=== PATIENT | female | born 1995 | race Two or more races ===

== ENCOUNTER 2017-11-12 14:54 | Emergency (ER) | payer MEDICAID, OTHER ==
--- NOTE | 2017-11-12 16:14 | ER Document Report ---
ED Medical Screen (RME) - General Chief Complaint: Vaginal Bleeding Stated Complaint: VAGINAL BLEEDING Time Seen by Provider: 11/12/17 16:06 Mode of Arrival: Ambulatory Information source: Patient Notes: Pt is a 22 year old female who presents to the ER today for 12 days of vaginal bleeding with some clots. She admits to "normal period" cramping but other than that no abdominal pain. She denies any lightheadedness or weakness. She is on the control patch. She denies but states "it's possible." TRAVEL OUTSIDE OF THE [place] IN LAST 30 DAYS: No - Related Data Allergies/Adverse Reactions: No Known Allergies Allergy (Verified 11/12/17 16:07) Past Medical History - General Information source: Patient Review of Systems - Review of Systems Constitutional: No symptoms reported EENT: No symptoms reported Cardiovascular: No symptoms reported Respiratory: No symptoms reported Gastrointestinal: No symptoms reported Genitourinary: No symptoms reported Female Genitourinary: See HPI Musculoskeletal: No symptoms reported Skin: No symptoms reported Hematologic/Lymphatic: No symptoms reported Neurological/Psychological: No symptoms reported Physical Exam - Vital signs Vitals: Temp Pulse Resp BP Pulse Ox 98.3 F 71 20 92/72 L 100 11/12/17 15:35 11/12/17 15:35 11/12/17 15:35 11/12/17 15:35 11/12/17 15:35 - Notes Notes: PHYSICAL EXAMINATION: GENERAL: well appearing, but in no acute distress. HEAD: Atraumatic, normocephalic. EYES: Pupils equal round and reactive to light, extraocular movements intact, sclera anicteric, conjunctiva are normal. NECK: Normal range of motion, supple without lymphadenopathy LUNGS: CTAB and equal. No wheezes rales or rhonchi. HEART: regular rate and rhythm without murmurs ABDOMEN: Soft, no tenderness. No guarding, no rebound BACK: no vertebral tenderness, normal ROM GI/: no CVA tenderness EXTREMITIES: Normal range of motion, no pitting edema, No cyanosis. NEUROLOGICAL:cranial nerves grossly intact, normal motor and sensory exam PSYCH: Normal mood, normal affect. SKIN: Warm, Dry, normal turgor, erythema and edema Course - Re-evaluation Re-evalutation: 11/13/17 20:13 pt has no lightheadeness or weakness, well appearing. test negative today. I will place her on medroxyprogesterone for 5 days to help with the heavy bleeding and 12 day cycle. - Vital Signs Vital signs: Temp Pulse Resp BP Pulse Ox 98.3 F 60 18 102/62 100 11/12/17 17:20 11/12/17 17:20 11/12/17 17:20 11/12/17 17:20 11/12/17 17:20 - Laboratory Laboratory results interpreted by me: 11/12/17 16:15 Urine Blood MODERATE H Ur Leukocyte Esterase TRACE H Doctor's Discharge - Discharge Clinical Impression: Heavy menstrual period Qualifiers: Menorrahagia type: with regular cycle Qualified Code(s): N92.0 - Excessive and frequent menstruation with regular cycle Condition: Stable Disposition: HOME, SELF-CARE Additional Instructions: Return with worsening symptoms. Please follow up with OBGYN. Prescriptions: Medroxyprogesterone Acetate 10 mg PO DAILY #5 tablet
[2017-11-12 16:36] LABS: APPEARANCE,URINE SLIGHTLY-CLOUDY; BILIRUBIN,URINE NEGATIVE (NEGATIVE); COLOR,URINE YELLOW; GLUCOSE, URINE NEGATIVE (NEGATIVE); KETONES,URINE NEGATIVE (NEGATIVE); LEUKOCYTE ESTERASE,URINE TRACE (NEGATIVE); NITRITE,URINE NEGATIVE (NEGATIVE); PROTEIN,URINE NEGATIVE (NEGATIVE); URINE SPECIFIC GRAVITY 1.021; UROBILINOGEN,URINE NEGATIVE mg/dL (<2.0)
[2017-11-12 17:34] VITALS: BP 102/62
== END 2017-11-12 17:21 | disposition home or self-care (01) ==
LOC: ER 14:54
DX: N92.0 Excessive and frequent menstruation with regular cycle (principal); Z79.3 Long term (current) use of hormonal contraceptives
CPT/HCPCS: 81001; 81025; 99284